=== PATIENT | male | born 1975 | race Two or more races ===

== ENCOUNTER 2020-08-05 19:01 | Inpatient (IN) | payer MEDICAID, OTHER ==
[~2020-08-05] VITALS: Ht 193 cm; Wt 91.3 kg
[2020-08-05] MEDS ORDERED: FUROSEMIDE 40 MG/4 ML VIAL IV ONE (19:15)
[2020-08-05] MEDS ORDERED: ONDANSETRON HCL 4 MG/2 ML VIAL IV ONE (19:15)
[2020-08-05] MEDS ORDERED: MORPHINE SULFATE 4 MG/ML SYR/VIAL IV ONE (19:15)
[2020-08-05] MEDS ORDERED: ASPirin 81 mg TAB PO ONE (19:15)
[2020-08-05 19:39] LABS: Hematocrit 38.4 % (41.0-53.0); Hemoglobin 12.5 g/dL (13.5-17.5); Mean Corpuscular Hemoglobin 27.6 pg (28.0-32.0); Mean Corpuscular Hgb Conc. 32.6 g/dL (32.0-36.0); Mean Corpuscular Volume 84.8 fL (80.0-100.0); Red Blood Cells 4.53 10^6/uL (4.5-5.90); White Blood Cell 3.4 10^3/uL (4.4-10.8)
[2020-08-05 19:41] LABS: Basophils % (manual) 0 (0.0-2.0); Blast Cells 0; Metamyelocytes % 0; Myelocytes % 0; Promyelocytes % 0; Reactive Lymphocytes 0
[2020-08-05 19:49] LABS: Potassium 3.8 mmol/L (3.5-5.1)
[2020-08-05 19:53] LABS: Albumin 3.7 g/dL (3.4-5.0); BUN/Creatinine Ratio 14.1; Calcium 8.9 mg/dL (8.5-10.1); Magnesium 1.8 mg/dL (1.6-2.6)
[2020-08-05 19:59] LABS: Bilirubin, Total 1.7 mg/dL (0.2-1.0); Total Protein 7.9 g/dL (6.4-8.2)
[2020-08-05 20:10] LABS: Band Neutrophils % (manual) 2; Eosinophils % (manual) 1 (0-7); Lymphocytes % (manual) 35 (10.0-50.0); Monocytes % (manual) 2 (0-12)
[2020-08-05] MEDS ORDERED: TEMAZEPAM 15 MG CAP PO PRN (22:00)
[2020-08-05] MEDS ORDERED: NITROGLYCERIN 0.4 MG SL TAB SL PRN (22:00)
[2020-08-05] MEDS ORDERED: ACETAMINOPHEN 325 MG TAB PO PRN (22:00)
[2020-08-05] MEDS ORDERED: MORPHINE SULFATE INJECTION 2 MG/ML SYRG IV PRN (22:00)
[2020-08-05] MEDS ORDERED: CARVEDILOL 3.125 MG TAB PO SCH (22:00)
[2020-08-05] MEDS ORDERED: ONDANSETRON HCL 4 MG/2 ML VIAL IV PRN (22:00)
[2020-08-05 22:26] LABS: INR 1.47 (0.9-1.15); Partial Thromboplastin Time 28.5 sec (23.0-31.2)
[2020-08-05] MEDS: FAMOTIDINE 20 MG TAB PO SCH (22:30)
[2020-08-05] MEDS ORDERED: IOHEXOL 350 MG/ML 100ML IJ ONE (22:30)
[2020-08-05] MEDS: ATORVASTATIN 20 MG TAB PO SCH (22:31)
[2020-08-06 00:10] VITALS: BP 111/70
[2020-08-06] MEDS ORDERED: ENOXAPARIN SOD 100 MG/1 ML SYRINGE SC SCH (01:00)
[2020-08-06] MEDS ORDERED: CAR3125T PO (04:26)
[2020-08-06] MEDS ORDERED: FURO1TAB33 PO (04:26)
[2020-08-06] MEDS ORDERED: WARF5TAB71 PO (04:26)
[2020-08-06] MEDS ORDERED: SACU1TAB PO (04:26)
[2020-08-06 05:00] VITALS: BP 115/69
[2020-08-06] MEDS: FUROSEMIDE 20 MG/2 ML VIAL IV SCH ×2 (05:31→17:13)
[2020-08-06 07:31] LABS: Calcium 8.5 mg/dL (8.5-10.1); Hematocrit 35.1 % (41.0-53.0); Hemoglobin 11.3 g/dL (13.5-17.5); Mean Corpuscular Hemoglobin 27.8 pg (28.0-32.0); Mean Corpuscular Hgb Conc. 32.4 g/dL (32.0-36.0); Mean Corpuscular Volume 85.9 fL (80.0-100.0); Potassium 3.9 mmol/L (3.5-5.1); Red Blood Cells 4.08 10^6/uL (4.5-5.90); White Blood Cell 3.5 10^3/uL (4.4-10.8)
[2020-08-06 07:34] LABS: BUN/Creatinine Ratio 16.2
[2020-08-06 07:36] LABS: Red Cell Distribution Width 24.5 % (11.8-14.3)
[2020-08-06 07:37] LABS: Band Neutrophils % (manual) 0; Basophils % (manual) 0 (0.0-2.0); Blast Cells 0; Metamyelocytes % 0; Myelocytes % 0; Promyelocytes % 0
[2020-08-06 07:38] LABS: Bilirubin, Total 1.1 mg/dL (0.2-1.0); Total Protein 6.4 g/dL (6.4-8.2)
[2020-08-06 07:51] LABS: INR 2.08 (0.9-1.15)
[2020-08-06 09:00] VITALS: BP 99/56
[2020-08-06] MEDS: FAMOTIDINE 20 MG TAB PO SCH ×2 (09:01→22:28)
[2020-08-06 09:30] LABS: Eosinophils % (manual) 3 (0-7); Lymphocytes % (manual) 42 (10.0-50.0); Monocytes % (manual) 9 (0-12); Reactive Lymphocytes 4
[2020-08-06] MEDS ORDERED: ASPirin 81 mg TAB PO SCH (10:00)
[2020-08-06] MEDS ORDERED: ENOXAPARIN SOD 40 MG/0.4 ML SYRINGE SC SCH (10:00)
[2020-08-06 14:51] LABS: Urine Bacteria NONE SEEN /hpf (None Seen); Urine Blood Negative /uL (Negative); Urine Mucus FEW (None Seen); Urine Specific Gravity 1.041 (1.001-1.035); Urine WBC 1 /hpf (0 - 3)
[2020-08-06 14:52] LABS: Amphetamine Screen, Urine NEGATIVE (NEGATIVE); Barbiturate Scree,Urine NEGATIVE (NEGATIVE); Benzodiazephine Screen, Urine NEGATIVE (NEGATIVE); Cannabinoid Screen, Urine NEGATIVE (NEGATIVE); Cocaine Screen, Urine NEGATIVE (NEGATIVE); Opiate Scree,Urine POSITIVE (NEGATIVE); Phencyclidine Screen, Urine NEGATIVE (NEGATIVE)
[2020-08-06 17:00] VITALS: BP 100/69
[2020-08-06] MEDS ORDERED: WARFARIN SODIUM 5 MG TAB PO ONE (17:00)
[2020-08-06 22:00] VITALS: BP 103/68
[2020-08-06] MEDS ORDERED: POTASSIUM CHL 10 Meq TABLET PO SCH (22:00)
[2020-08-06] MEDS: SACUBITRIL-VALSARTAN 24mg/26mg TAB PO SCH (22:27)
[2020-08-06] MEDS: ATORVASTATIN 20 MG TAB PO SCH (22:28)
[2020-08-07 05:00] VITALS: BP 98/61
[2020-08-07] MEDS: FUROSEMIDE 20 MG/2 ML VIAL IV SCH (06:00)
[2020-08-07 06:05] LABS: Basophils # (auto) 0.1 10 ^3/uL (0-0.2); Basophils % (auto) 3.6 % (0.0-2.0); Eosinophils # (auto) 0.1 10 ^3/uL (0-0.8); Eosinophils % (auto) 2.3 % (0.0-7.0); Hematocrit 33.9 % (41.0-53.0); Hemoglobin 11.2 g/dL (13.5-17.5); Lymphocytes # (auto) 1.4 10 ^3/uL (0.4-5.4); Lymphocytes % (auto) 46.4 % (10.0-50.0); Mean Corpuscular Hemoglobin 27.9 pg (28.0-32.0); Mean Corpuscular Hgb Conc. 32.9 g/dL (32.0-36.0); Monocytes # (auto) 0.2 10 ^3/uL (0-1.3); Monocytes % (auto) 7.7 % (0.0-12.0); Neutrophils # (auto) 1.2 10 ^3/uL (1.6-8.6); Nucleated Red Blood Cells % 0.2 %; Red Blood Cells 3.99 10^6/uL (4.5-5.90)
[2020-08-07 06:21] LABS: Calcium 8.5 mg/dL (8.5-10.1); Potassium 3.9 mmol/L (3.5-5.1)
[2020-08-07 06:23] LABS: Red Cell Distribution Width 24.3 % (11.8-14.3)
[2020-08-07 06:25] LABS: INR 1.4 (0.9-1.15)
[2020-08-07 09:00] VITALS: BP 108/64
[2020-08-07] MEDS: SACUBITRIL-VALSARTAN 24mg/26mg TAB PO SCH ×2 (11:51→21:43)
[2020-08-07] MEDS: POTASSIUM CHL 10 Meq TABLET PO SCH (11:52)
[2020-08-07] MEDS: APIXABAN 5 MG TAB PO SCH ×2 (11:52→21:43)
[2020-08-07] MEDS: FAMOTIDINE 20 MG TAB PO SCH ×2 (11:53→21:43)
[2020-08-07] MEDS: FUROSEMIDE 40 MG TAB PO SCH (11:54)
[2020-08-07 13:00] VITALS: BP 101/72
[2020-08-07 16:58] VITALS: BP 94/60
[2020-08-07] MEDS ORDERED: WARFARIN SODIUM 2.5 MG TAB PO ONE (17:00)
[2020-08-07] MEDS: ATORVASTATIN 20 MG TAB PO SCH (21:43)
[2020-08-07 22:00] VITALS: BP 110/68
[2020-08-08 05:00] VITALS: BP 100/63
[2020-08-08 05:49] LABS: Basophils # (auto) 0.1 10 ^3/uL (0-0.2); Basophils % (auto) 2.5 % (0.0-2.0); Eosinophils # (auto) 0.1 10 ^3/uL (0-0.8); Eosinophils % (auto) 1.5 % (0.0-7.0); Hematocrit 34.1 % (41.0-53.0); Hemoglobin 10.9 g/dL (13.5-17.5); Lymphocytes # (auto) 1.8 10 ^3/uL (0.4-5.4); Lymphocytes % (auto) 50.6 % (10.0-50.0); Mean Corpuscular Hemoglobin 27.2 pg (28.0-32.0); Monocytes # (auto) 0.3 10 ^3/uL (0-1.3); Monocytes % (auto) 8.6 % (0.0-12.0); Neutrophils # (auto) 1.3 10 ^3/uL (1.6-8.6); Neutrophils % (auto) 36.8 % (37.0-80.0); Nucleated Red Blood Cells % 0.2 %; Red Blood Cells 4.01 10^6/uL (4.5-5.90); White Blood Cell 3.5 10^3/uL (4.4-10.8)
[2020-08-08 05:55] LABS: Red Cell Distribution Width 23.5 % (11.8-14.3)
[2020-08-08 07:28] LABS: Albumin 2.7 g/dL (3.4-5.0)
[2020-08-08 09:00] VITALS: BP 116/71
[2020-08-08] MEDS: APIXABAN 5 MG TAB PO SCH ×2 (10:00→22:06)
[2020-08-08] MEDS: FAMOTIDINE 20 MG TAB PO SCH ×2 (10:00→22:07)
[2020-08-08] MEDS: SACUBITRIL-VALSARTAN 24mg/26mg TAB PO SCH ×2 (10:00→22:06)
[2020-08-08] MEDS: FUROSEMIDE 40 MG TAB PO SCH (10:01)
[2020-08-08] MEDS: POTASSIUM CHL 10 Meq TABLET PO SCH (10:01)
[2020-08-08 13:00] VITALS: BP 77/60
[2020-08-08 16:50] VITALS: BP 77/45
[2020-08-08 22:00] VITALS: BP 100/63
[2020-08-08] MEDS: ATORVASTATIN 20 MG TAB PO SCH (22:07)
[2020-08-09 05:09] VITALS: BP 98/60
[2020-08-09 06:06] LABS: Basophils # (auto) 0 10 ^3/uL (0-0.2); Basophils % (auto) 1.4 % (0.0-2.0); Eosinophils # (auto) 0 10 ^3/uL (0-0.8); Eosinophils % (auto) 1.6 % (0.0-7.0); Hematocrit 33.8 % (41.0-53.0); Hemoglobin 11.2 g/dL (13.5-17.5); Mean Corpuscular Hemoglobin 28.1 pg (28.0-32.0); Mean Corpuscular Volume 85.2 fL (80.0-100.0); Neutrophils # (auto) 1.1 10 ^3/uL (1.6-8.6); Neutrophils % (auto) 38.4 % (37.0-80.0); Nucleated Red Blood Cells % 0.1 %; Red Blood Cells 3.97 10^6/uL (4.5-5.90); White Blood Cell 2.9 10^3/uL (4.4-10.8)
[2020-08-09 06:44] LABS: Lymphocytes % (auto) 49.8 % (10.0-50.0); Monocytes % (auto) 8.8 % (0.0-12.0); Red Cell Distribution Width 23.9 % (11.8-14.3)
[2020-08-09 06:45] LABS: Lymphocytes # (auto) 1.4 10 ^3/uL (0.4-5.4); Monocytes # (auto) 0.3 10 ^3/uL (0-1.3)
[2020-08-09 08:00] VITALS: BP 116/71
[2020-08-09 09:00] VITALS: BP 88/59
[2020-08-09] MEDS: POTASSIUM CHL 10 Meq TABLET PO SCH (10:12)
[2020-08-09] MEDS: SACUBITRIL-VALSARTAN 24mg/26mg TAB PO SCH (10:12)
[2020-08-09] MEDS: APIXABAN 5 MG TAB PO SCH (10:12)
[2020-08-09] MEDS: FAMOTIDINE 20 MG TAB PO SCH (10:12)
[2020-08-09] MEDS: FUROSEMIDE 40 MG TAB PO SCH (10:13)
[2020-08-09 13:00] VITALS: BP 99/53
[2020-08-09 13:04] VITALS: BP 99/53
[2020-08-14] MEDS ORDERED: APIXABAN 5 MG TAB PO SCH (10:00)
== END 2020-08-09 16:00 | disposition home or self-care (01) | DRG 194 ==
LOC: ER 19:01 → TELE 21:54 → TELE-CENTR 23:44
PROVIDERS: ADMIT Nurse Practitioner; ATTEND Internal Medicine
DX: I11.0 Hypertensive heart disease with heart failure (principal); I26.99 Other pulmonary embolism without acute cor pulmonale; J96.00 Acute respiratory failure, unspecified whether with hypoxia or hypercapnia; I50.23 Acute on chronic systolic (congestive) heart failure; Z20.822 Contact with and (suspected) exposure to COVID-19; E78.5 Hyperlipidemia, unspecified; K76.0 Fatty (change of) liver, not elsewhere classified; I42.9 Cardiomyopathy, unspecified; Z79.01 Long term (current) use of anticoagulants; I25.2 Old myocardial infarction; Z79.899 Other long term (current) drug therapy; Z83.3 Family history of diabetes mellitus
CPT/HCPCS: 36415; 71045; 71275; 76705; 80048; 80053; 80307; 81001; 82040; 82565; 83605; 83735; 83880; 84132; 84484; 85007; 85025; 85027; 85379; 85610; 85730; 87426; 93005; 93306; 96374; 96375; G0378; J2405